=== PATIENT | male | born 1950 | race American Indian/Alaskan Native ===

== ENCOUNTER 2017-09-07 14:39 | Emergency (ER) | payer MEDICAID, MEDICARE ==
[2017-09-07 14:40] VITALS: BMI 23.0
[2017-09-07] MEDS ORDERED: Lidocaine 5% Patch TD STA (16:14)
--- NOTE | 2017-09-07 16:14 | C.PDOC ---
History Of Present Illness 66 year old male presents to the ED c/o back pain SP sustaining a fall for the past week. Patient states he slipped down stairs and landed on his back. Patient is currently c/o persistent pain to his lower back that worsens with movement. Patient states he has not tried any pain medications. Patient denies hx of chronic back pain, incontinence, weakness, numbness, saddle anesthesia, dyruria, hematuria. BACK PAIN X 1 WEEK SP FALL. PS SLIPPED DOWN STAIRS LANDED ON BACK. CO PERSIST PAIN LOWER BACK WORSE W MOVEMENT. NO PAIN MEDS TRIED. DENIES HO CHRONIC BACK PAIN. DENIES OTHER ASSOC SX EXAM NAD BACK LIMITED FULL EXTENSION DUE TO PAIN. NO LS TEND. B/L LOWER SPASM W LOCAL TEND NEURO INTACT SKIN INTACT Time Seen by Provider: 09/07/17 16:06 Chief Complaint (Nursing): Back Pain History Per: Patient History/Exam Limitations: no limitations Onset/Duration Of Symptoms: Days Current Symptoms Are (Timing): Still Present Quality Of Discomfort: "Pain" Severity: None Previous Symptoms: None Exacerbating Factor(s): Movement Recent travel outside of the [place]: No Additional History Per: Patient Past Medical History Reviewed: Historical Data, Nursing Documentation, Vital Signs Vital Signs: Last Vital Signs Temp 100.2 F H 09/07/17 15:10 Pulse 75 09/07/17 15:10 Resp 19 09/07/17 15:10 BP 152/89 H 09/07/17 15:10 Pulse Ox 98 09/07/17 16:31 - Medical History PMH: HTN Denies: Chronic Kidney Disease Surgical History: No Surg Hx Family History: States: Unknown Family Hx - Social History Hx Alcohol Use: Yes (daily beer/whiskey) Hx Substance Use: No - Immunization History Hx Tetanus Toxoid Vaccination: No Hx Influenza Vaccination: No Hx Pneumococcal Vaccination: No Review Of Systems Constitutional: Negative for: Fever, Chills Cardiovascular: Negative for: Chest Pain, Palpitations Respiratory: Negative for: Cough, Shortness of Breath Gastrointestinal: Negative for: Nausea, Vomiting, Abdominal Pain Musculoskeletal: Positive for: Back Pain Skin: Negative for: Rash Neurological: Negative for: Weakness, Numbness Physical Exam - Physical Exam Appears: Non-toxic, No Acute Distress Skin: Normal Color, Warm, Dry Head: Atraumatic, Normacephalic Eye(s): bilateral: Normal Inspection Nose: No Discharge, No Deformity Back: Other (Limited full extension due to pain. No LS tender. B/L lower spasm with local tednerness) Extremity: Normal ROM, No Pedal Edema, No Calf Tenderness, No Deformity, No Swelling Neurological/Psych: Oriented x3, Normal Speech, Normal Cognition, Normal Motor, Normal Sensation Gait: Steady ED Course And Treatment O2 Sat by Pulse Oximetry: 98 (On RA) Pulse Ox Interpretation: Normal - Other Rad LS SPINE X-Ray: Interpreted by Me (NEG) Medical Decision Making Medical Decision Making: Impression : lower back pain Plan: * LS spine X-Ray * Lidoderm 5%1 ea TD * Toradol 30 mg IM * Tylenol 650 mg PO Disposition Counseled Patient/Family Regarding: Studies Performed, Diagnosis, Need For Followup, Rx Given - Disposition Referrals: [facility] [Outside] [facility] [Outside] Disposition: HOME/ ROUTINE Disposition Time: 16:40 Condition: IMPROVED Prescriptions: Acetaminophen [Tylenol Extra Strength] 2 tab PO Q6 #30 tablet Cyclobenzaprine [Flexeril] 10 mg PO TID #15 tab Ibuprofen [Motrin] 600 mg PO Q6 #30 tab Lidocaine 5% [Lidoderm] 1 ea TD PRN PRN #10 patch PRN Reason: Pain, Moderate (4-7) Instructions: Acute Low Back Pain (ED) Forms: [facility] ([place]an), Work Excuse - Clinical Impression Clinical Impression: Low back pain, Lumbar sprain - Scribe Statement The provider has reviewed the documentation as recorded by the Scribe Russell Gonzalez All medical record entries made by the Scribe were at my direction and personally dictated by me. I have reviewed the chart and agree that the record accurately reflects my personal performance of the history, physical exam, medical decision making, and the department course for this patient. I have also personally directed, reviewed, and agree with the discharge instructions and disposition.
--- NOTE | 2017-09-07 16:44 | RAD ---
PROCEDURE: Radiographs of the Lumbar Spine. HISTORY: TRAUMA COMPARISON: No prior. FINDINGS: BONES: Vertebral bodies maintained in height. Normal alignment maintained. Transverse processes and posterior elements appear intact. DISC SPACES: Disc spaces are maintained in height. Flowing ossification along the anterior longitudinal ligament suggests possible DISH. OTHER FINDINGS: None. IMPRESSION: No evidence of fracture or dislocation. 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
[2017-09-07] MEDS ORDERED: Lidocaine 5% Patch TD ONE (17:06)
[2017-09-07 17:22] VITALS: BP 137/88; PULSE 80; RESP 18; TEMP 98.9; O2SAT 100
== END 2017-09-07 17:45 | disposition home or self-care (01) ==
LOC: C.ER 14:39
DX: S33.5XXA Sprain of ligaments of lumbar spine, initial encounter (principal); W10.9XXA Fall (on) (from) unspecified stairs and steps, initial encounter; M54.5 Low back pain
CPT/HCPCS: 72100; 96372; 99284; J1885